=== PATIENT | female | born 1950 | race Two or more races ===

== ENCOUNTER 2018-07-11 21:34 | Emergency (ER) | payer OTHER ==
[~2018-07-11] VITALS: Ht 165.1 cm; Wt 64.9 kg
[2018-07-11] MEDS ORDERED: GLIMEPIRIDE2 MG (21:58)
[2018-07-11] MEDS ORDERED: AMLODIPINE BES2.5 MG (21:59)
[2018-07-11] MEDS ORDERED: JANUVIA100 MG (21:59)
[2018-07-11] MEDS ORDERED: ASA325 MG (22:00)
[2018-07-11] MEDS ORDERED: PLAVIX75 MG (22:00)
[2018-07-11] MEDS ORDERED: LOSARTAN-HCTZ1 EAC1 (22:00)
[2018-07-12] MEDS ORDERED: MECLIZINE HCL25 MG PO (03:44)
== END 2018-07-12 03:42 | disposition home or self-care (01) ==
LOC: ER 21:34
DX: R42 Dizziness and giddiness (principal)